=== PATIENT | female | born 1980 ===

== ENCOUNTER 2021-07-08 15:02 | Outpatient (CLI) | payer OTHER, SELFPAY ==
--- NOTE | 2021-07-08 15:54 | PM.OBTRLD ---
Visit Information Visit Information Date of evaluation: 07/08/21 Primary OB Provider: Lauren Cruz Reason for Evaluation: Yes non-stress test non-stress test reason: diabetes [facility] Medical History (Updated 07/08/21 @ 15:55 by Lauren Cruz MD) Abnormal Pap smear of cervix (~2007) Asthma Bronchopneumonia (~1995) Chicken pox (~1989) Gestational diabetes (~2017) Gestational diabetes mellitus (GDM) affecting , antepartum MRSA (methicillin resistant Staphylococcus aureus) infection (~2008) Vertigo (~2012) Surgical History (Updated 07/07/21 @ 20:31 by Luana Hall) Anesthesia H/O dilation and curettage History of cervical cerclage (~12/31/19) Previous section (~2019) [place] teeth extracted (~2005) Family History (Updated 05/24/21 @ 09:29 by Ella Woods RN) Mother Diabetes mellitus Hypertension Myocardial infarction Father No problems noted. Grandmother Memory changes Grandfather Pacemaker Myocardial infarction Grandmother Medical history unknown Grandfather No problems noted. Social History marital status: number of children: 2 household members: spouse and children lives independently: Yes caregiver/support person: No housing: house pets and animals: Yes (1 dog, 1 cat: aware/ safe. ) education level: college (Some college in [employer]: Communications. ) occupational status: unemployed current occupational exposures/hazards: No special nancy needs: No seatbelt use: always do you feel safe at home: Yes Smoking Status: Never smoker second hand exposure: No alcohol intake: former (Pre-:occasional ) substance use type: does not use during the past year weight has: increased > 10 lbs well-balanced diet: rarely or never (Since they moved. Their belongings have not arrived, does not have kitchen supplies, eating out a lot right now. ) daily servings fruits/ve-4 caffeine: Yes (Decaf. ) Type(s) of exercise: normal ROM and activity frequency: does not exercise Evaluation Evaluation Baseline heart rate: 140 Variability: Moderate (11-25) monitor accelerations: Present Monitor Decelerations: Absent Category of Tracing: Reactive Status: Category l Diagnosis, Plan/Disposition Final Diagnosis (1) Gestational diabetes mellitus (GDM) affecting , antepartum: Status: Acute Problem details: On insulin (2) 36 weeks gestation of : Status: Acute Plan/Disposition Plan: Reactive nonstress test. Patient is scheduled for repeat in 8 days. Precautions refer OB Disposition: home
== END 2021-07-08 15:55 | disposition home or self-care (01) ==
LOC: LABOR 15:42 → OB 07-09 14:37
PROVIDERS: Referring Provider Specialist; Visit Provider Specialist
DX: O24.414 Gestational diabetes mellitus in pregnancy, insulin controlled (principal); Z3A.36 36 weeks gestation of pregnancy; Z34.83 Encounter for supervision of other normal pregnancy, third trimester
CPT/HCPCS: 59025; 87653; G0378; G0379

== ENCOUNTER → 2021-07-08 15:04 | Outpatient (CLI) | payer OTHER, SELFPAY ==
[2021-07-09 18:43] LABS: Strep Grp B PCR NEG for Grp B Strep
== END ==
PROVIDERS: Referring Provider Specialist; Visit Provider Specialist
DX: Z34.83 Encounter for supervision of other normal pregnancy, third trimester (principal); Z3A.36 36 weeks gestation of pregnancy
CPT/HCPCS: 87653

== ENCOUNTER 2021-07-16 05:51 | Inpatient (IN) | payer OTHER, SELFPAY ==
[2021-07-16] VITALS (7 sets, daily range): BP systolic 105–130; BP diastolic 47–68; PULSE 72–86; RESP 12–20; TEMP 36.4–36.5; O2SAT 98–99
--- NOTE | 2021-07-16 | PATH_ITS ---
[facility] Accession Number: [id number] . 01 Material submitted: . fallopian tube - BILATERAL FALLOPIAN TUBES . 02 Diagnosis: Bilateral Fallopian Tubes, Bilateral Salpingectomy: Bilateral fallopian tubes with congestive hemorrhage and edema. Negative for dysplasia and malignancy. MRV 07/19/2021 1430 Local . 02 Electronically signed: . Peggy Kline MD, Pathologist NPI- [id number] . 01 Gross description: . The specimen is received in formalin, labeled bilateral fallopian tubes and consists of two fallopian tubes measuring 5.8 cm in length by 1.5 cm in diameter and 8.0 cm in length by 0.9 cm in diameter. The serosa is pink-purple and smooth with multiple paratubal cysts ranging from 0.1-0.3 cm. Sectioning reveals a ga mucosa and a stellate lumen measuring 0.2 cm in diameter. The shorter fallopian tube displays evidence of a hemosalpinx. Stage Electrician Helper sections of each fallopian tube are submitted, to include the end face margin (blue), central cross sections and bisected fimbriae in cassettes A1-A4. ([id number]) /MRV 07/17/2021 1144 Local . 02 Pathologist provided ICD-10: Z98.891 . 02 CPT . 142524 Performed at: 01 [facility] [address] [place] [address], [place], [place] [id number] MD Abisai Jones MD Phone: [phone] Performed at: 02 [facility] [address] [place], [place] [id number] MD Hawa Truong MD Phone: [phone]
[2021-07-16 06:44] LABS: Add Manual Diff / Slide Review NO; Basophils Absolute Auto 0 /uL (0-100); Basophils Percent Auto 0.4 % (0-2); Eosinophils Absolute Auto 0 /uL (0-450); Eosinophils Percent Auto 0.5 % (2-4); Hematocrit 35.7 % (36-46); Hemoglobin 11.8 g/dL (12.0-16.0); Lymphocytes Absolute Auto 2600 /uL (1100-4500); Lymphocytes Percent Auto 32.2 % (25-40); Mean Corpuscular HGB Conc 32.9 % (30-36); Mean Corpuscular Hemoglobin 27.3 PG (26-34); Mean Corpuscular Volume 82.8 fL (80-100); Monocytes Absolute Auto 500 /uL (0-900); Monocytes Percent Auto 6.4 % (3-14); Neutrophils Absolute Auto 4800 /uL (1500-7000); Neutrophils Percent Auto 60.5 % (50-75); Platelet Count 270 X10^3/uL (150-400); Red Blood Cell Count 4.31 X10^6/uL (4.0-5.2); Red Cell Distribution Width 15.6 % (11.6-14.8)
--- NOTE | 2021-07-16 07:24 | PM.PREOP ---
Pre-operative Note COVID-19 COVID-19 status: Result pending Result date/Date tested (Pos, Neg/Pending): 07/16/21 Interval Note History & Physical reviewed/Exam performed by Physician: Yes Changes to H&P: No
--- NOTE | 2021-07-16 07:25 | PM.OBHP.1 ---
OB HPI Date/Time Date of admission: 07/16/21 Date Patient Seen: 07/16/21 Time Patient Seen: 07:25 History of Present Condition Chief complaint: INPT : 9 Para: 3 Estimated Date of Delivery: 08/03/21 Estimated Gestational Age (weeks): 37 Narrative: Guillermina Figueroa is a 40 year old female admitted for repeat section, bilateral salpingectomies, removal of abdominal cerclage Indications Operative indications ( section): previous uterine surgery History of Present care: good care, initiated at week # (9), number of visits (10) and pounds weight gain (10) Dating criteria: LMP confirmed by 1st trimester US Ultrasounds: normal mid trimester US Obstetrical complications: gestational diabetes (On insulin) Preadmission Labs Blood type: B (+) positive -: Antibody screen: negative, GBS status: negative, HBsAG: negative, HIV: negative and RPR/VDLR: negative -: Chlamydia screen: not detected and Gonorrhea screen: not detected -: Rubella: immune HCAB: negative Prior (ies) History: 06/28/2009 female 5 lb 6 oz 06/07/2020 female 5 lb 3 oz Prior PPROM at 16 weeks Evaluation Evaluation Baseline heart rate: 130 Variability: Moderate (11-25) monitor accelerations: Present Monitor Decelerations: Absent Category of Tracing: Reactive Status: Category l PFSH Medical History (Updated 07/08/21 @ 15:55 by Lauren Cruz MD) Abnormal Pap smear of cervix (~2007) Asthma Bronchopneumonia (~1995) Chicken pox (~1989) Gestational diabetes (~2017) Gestational diabetes mellitus (GDM) affecting , antepartum MRSA (methicillin resistant Staphylococcus aureus) infection (~2008) Vertigo (~2012) Surgical History (Updated 07/07/21 @ 20:31 by Luana Hall) Anesthesia H/O dilation and curettage History of cervical cerclage (~12/31/19) Previous section (~2019) [place] teeth extracted (~2005) Family History (Updated 05/24/21 @ 09:29 by Ella Woods RN) Mother Diabetes mellitus Hypertension Myocardial infarction Father No problems noted. Grandmother Memory changes Grandfather Pacemaker Myocardial infarction Grandmother Medical history unknown Grandfather No problems noted. Social History marital status: number of children: 2 household members: spouse and children lives independently: Yes caregiver/support person: No housing: house pets and animals: Yes (1 dog, 1 cat: aware/ safe. ) education level: college (Some college in [employer]: Communications. ) occupational status: unemployed current occupational exposures/hazards: No special nancy needs: No seatbelt use: always do you feel safe at home: Yes Smoking Status: Never smoker second hand exposure: No alcohol intake: former (Pre-:occasional ) substance use type: does not use during the past year weight has: increased > 10 lbs well-balanced diet: rarely or never (Since they moved. Their belongings have not arrived, does not have kitchen supplies, eating out a lot right now. ) daily servings fruits/ve-4 caffeine: Yes (Decaf. ) Type(s) of exercise: normal ROM and activity frequency: does not exercise Meds Home Medications and Allergies Home Medications Medication Instructions Recorded Confirmed Type blood sugar diagnostic (Blood #100 ea 05/23/21 06/13/21 Rx Glucose Test) blood-glucose meter (Blood Glucose #1 ea 05/23/21 06/13/21 Rx Monitoring) lancets #200 ea 05/23/21 06/13/21 Rx prenat.vits,slava,pzo-tfug-ignxg 1 tab PO DAILY #90 tab 05/23/21 06/13/21 Rx aluminum chloride 20 % topical 1 applic TOPICAL ONCE PRN ml 05/24/21 06/13/21 History solution (Drysol) docusate sodium 100 mg tablet 50 mg PO BID tab 05/24/21 06/13/21 History (Stool Softener) insulin NPH isoph U-100 human 100 12 unit SUBCUT QPM #10 ml 05/24/21 06/13/21 Rx unit/mL subcutaneous suspension (Novolin N NPH U-100 Insulin isophane) progesterone micronized 100 mg 200 mg VAGINAL DAILY #21 ea 05/24/21 06/13/21 Rx vaginal insert hydrocodone 5 mg-acetaminophen 325 1 tab PO Q4-6H PRN #30 tab 06/27/21 06/27/21 Rx mg tablet Allergies Allergy/AdvReac Type Severity Reaction Status Date / Time Sulfa (Sulfonamide Allergy Severe Rash, Fever Verified 07/16/21 07:30 Antibiotics) Review of Systems Review of Systems Narrative: Patient denies rupture membranes, no headaches, scotomata, epigastric pain. Good movement. No regular contractions. No vaginal bleeding. Exam Vital Signs (past 8 hours): Blood pressure 130/68, pulse of 86, temperature 97.2? Narrative Exam Narrative: HEENT exam within normal limits. Lungs are clear to auscultation percussion. Heart is regular rate and rhythm no S3-S4 murmurs. Fetus is vertex. Extremities without edema and nontender. Objective Labs Result Diagrams: 07/16/21 06:35 Labs: Laboratory Results - last 24 hr 07/16/21 06:35 WBC 8.0 RBC 4.31 Hgb 11.8 L Hct 35.7 L MCV 82.8 MCH 27.3 MCHC 32.9 RDW 15.6 H Plt Count 270 Neut % (Auto) 60.5 Lymph % (Auto) 32.2 [place] % (Auto) 6.4 Eos % (Auto) 0.5 L Baso % (Auto) 0.4 Neut # (Auto) 4800 Lymph # (Auto) 2600 [place] # (Auto) 500 Eos # (Auto) 0 Baso # (Auto) 0 Assessment and Plan Assessment and Plan Assessment and Plan narrative: 37 week 3 day complicated by 2 prior sections, abdominal cerclage, gestational diabetes insulin controlled for repeat section, bilateral tubal ligation for desire for sterilization, removal of abdominal cerclage
[2021-07-16 07:32] LABS: COVID19 - ADMIT (NP swab/PCR) Negative (Negative)
[2021-07-16] MEDS: CEFAZOLIN VIAL 2 GM in SODIUM CHLORIDE 0.9% 100 ML 200 ML IV (08:05)
--- NOTE | 2021-07-16 08:09 | SUR.OPER ---
Supine on Padded OR bed, head on pillow, safety belt at thigh, arms secured on padded arm boards at <90 degrees abduction. Bump under right buttock. Legs uncrossed with pillow under knees, gel pad to heels, tape over blanket to lower legs.Gel pad placed on buitrago tubing to protect thigh.
--- NOTE | 2021-07-16 08:49 | SUR.OPER ---
Placenta and Cord Blood tubes x2 given to OB Nurse. Viable baby girl Time of 0822.
--- NOTE | 2021-07-16 09:40 | P.OP_ITS ---
Operative Date/Time/Diagnoses Date of procedure: 07/16/21 Time of procedure: 09:40 Pre-op diagnosis: 37 week gestation with abdominal cerclage and 2 prior sections and wish for sterilization Post-op diagnosis: same Procedure & Clinicians Procedure: Repeat low-transverse section with bilateral salpingectomies and removal abdominal cerclage Same procedure as scheduled: Yes Indications: 2 prior sections an abdominal cerclage at 37 and half weeks and wish for sterilization Surgeon: Lauren Cruz Software Integration Developer: Soo Sheehan Click Yes if Unassisted: No Anesthesia Type: Spinal Operative Notes Findings: Normal tubes, ovaries, uterus. Adhesions of the bladder flap to the anterior abdominal wall. Abdominal cerclage. Viable female weighing 6 lb 3 oz with Apgars of 8 and 9 Closure Type: primary Specimen(s): other (Bilateral fallopian tubes) Applied: catheter (Espinoza) Estimated Blood Loss (mL): 300 Blood products transfused: none Procedure in detail: The patient was brought to the operating room where she underwent a spinal for anesthesia. She was placed in a supine position with a left lateral tilt. A Espinoza catheter was placed. Pulsatile stockings were placed and functional throughout the case. 2 g of Ancef were given IV prior to the incision. Warming was in place. The patient was prepped and draped in usual sterile fashion. A low transverse incision was made with a scalpel and the incision was carried down to the fascial layer which was incised transversely with scalpel and scissors. The construction management assistant did her side of the incision. The midline attach ments are superiorly and inferiorly. Some bleeding was controlled Bovie. The rectus muscles were in the midline. The peritoneal was entered with the midline attachments. There was no damage to internal structures. The peritoneum was incised and superiorly and inferiorly. The incision was stretched with the surgeon and construction management assistant placing traction. Bladder blade was placed and a bladder flap was developed and the bladder held away from the lower uterine segment. An incision was made in the uterus with the scalpel and the incision was extended with stretching. The head was elevated out of the abdomen and with fundal pressure by the construction management assistant the baby was delivered. The infant was bulb suctioned for clear fluid and handed off to the warmer. Cord blood was collected. The placenta delivered spontaneously with traction. The uterus was cleaned with clean laps. The uterine incision was closed in 2 layers of 0 chromic suture the first a running locking layer the second an imbricating layer. The construction management assistant was helping to expose the incision. The bladder peritoneum was repaired with 2-0 Vicryl suture. The gutters were cleaned of any remaining fluids and ovaries and tubes were observed to be normal. The fallopian tubes were removed using the Thunderbeat. Adequate hemostasis was noted. Next the posterior uterine area of the abdominal cerclage was cut. Going anteriorly the knot was found and cleaned of scar tissue. The knot was cut and the remaining segments of the cerclage were removed. Hemostasis was obtained with Bovie. Perineum was closed with 2-0 Vicryl suture. The fascia layer was closed with 0 Vicryl suture with 2 stitches. The construction management assistant repairing half the incision with helping to retract and expose the incision for the other half. The incision was irrigated and bleeding controlled with Bovie. Adequate hemostasis noted. The incision was closed with interrupted 3-0 Vicryl sutures and then a subcuticular stitch of 4-0 Vicryl suture. Steri-Strips were placed. The uterus was massaged to remove any clots. The patient went to recovery room in good condition. Counts of instruments and sponges were correct. Dr. Sheehan was present throughout the case to assist with retraction, fundal pressure to deliver the , and suturing half the fascia as well as removing the left fallopian tube. Complications: none Post-operative Condition: stable Disposition: other ( Center) Plan for aftercare: Routine postop section
--- NOTE | 2021-07-16 10:36 | SUR.PHASEI ---
Transferred to center room 1. Received in room by LORENA Alvarez
[2021-07-16] MEDS: LACTATED RINGERS 1,000 ML 100 ML IV (11:10)
[2021-07-16] MEDS: NALOXONE 0.4 MG/ML VIAL IV (15:14)
[2021-07-16] MEDS: KETOROLAC 30 MG/ML VIAL IV ×2 (15:23→21:49)
[2021-07-17] MEDS: diphenhydrAMINE 50 MG/ML VIAL 25 MG IV (01:04)
[2021-07-17] MEDS: KETOROLAC 30 MG/ML VIAL IV (04:06)
--- NOTE | 2021-07-17 07:08 | PM.OBPN.1 ---
Subjective - OB Subjective Patient comments: no complaints and tolerating diet [place] baby status: doing well feeding status: exclusively breast feeding Date Patient Seen: 07/17/21 Time Patient Seen: 07:09 Interval history: Postoperative day 1 repeat low-transverse section, bilateral salpingectomies, removal of abdominal cerclage Exam Vital Signs (past 8 hours): Blood pressure 118/67, temperature 89, temperature 98.2? Oxygen Delivery Method Room Air Narrative Exam Narrative: Abdomen is soft, minimally distended, nontender. Uterus is firm, at U, nontender. Dressing is clean, dry, intact. Mild lochia. Extremities without edema and nontender. Patient is Rh positive, rubella immune, received Tdap in the 3rd trimester. Objective Labs Result Diagrams: 07/16/21 06:35 Labs: Laboratory Results - last 24 hr 07/16/21 07/16/21 06:35 06:35 SARS-CoV-2 (PCR) Negative Blood Type B Positive Antibody Screen Negative Assessment & Plan Assessment and Plan (1) Sterilization: Problem details: Bilateral salpingectomies Status: Acute (2) Delivery by section using transverse incision of lower segment of uterus: Status: Acute (3) Cervical cerclage suture present: Problem details: Abdominal cerclage, removed at 07/16/2021 Status: Acute Plan day: 1 plan OB: routine care Time Spent With Patient Time: Total time spent is greater than 50% in coordination of care (as documented) at patient's floor/unit and/or counseling patient: Time with patient: less than 15 minutes
[2021-07-17] MEDS: DOCUSATE 100 MG CAPSULE 200 MG PO (09:57)
[2021-07-17] MEDS: ACETAMINOPHEN 325 MG TABLET 650 MG PO ×2 (10:39→19:44)
[2021-07-17] MEDS: IBUPROFEN 600 MG TABLET PO ×2 (10:40→19:44)
[2021-07-17] MEDS: OXYCODONE IR 5 MG TABLET PO ×2 (11:33→13:09)
[2021-07-17 12:10] LABS: Add Manual Diff / Slide Review NO; Basophils Absolute Auto 0 /uL (0-100); Basophils Percent Auto 0.2 % (0-2); Eosinophils Absolute Auto 0 /uL (0-450); Eosinophils Percent Auto 0.2 % (2-4); Hematocrit 31.9 % (36-46); Hemoglobin 10.6 g/dL (12.0-16.0); Lymphocytes Absolute Auto 1900 /uL (1100-4500); Mean Corpuscular HGB Conc 33.3 % (30-36); Mean Corpuscular Hemoglobin 27.5 PG (26-34); Mean Corpuscular Volume 82.6 fL (80-100); Monocytes Absolute Auto 500 /uL (0-900); Monocytes Percent Auto 4.5 % (3-14); Neutrophils Absolute Auto 8500 /uL (1500-7000); Neutrophils Percent Auto 78.1 % (50-75); Platelet Count 267 X10^3/uL (150-400); Red Blood Cell Count 3.86 X10^6/uL (4.0-5.2); White Blood Cell Count 10.9 X10^3/uL (4.5-11.0)
[2021-07-17] MEDS: OXYCODONE IR 10 MG TABLET PO ×2 (16:49→22:14)
[2021-07-18] MEDS: ACETAMINOPHEN 325 MG TABLET 650 MG PO ×2 (02:35→08:49)
[2021-07-18] MEDS: IBUPROFEN 600 MG TABLET PO ×2 (02:35→08:48)
[2021-07-18] MEDS: OXYCODONE IR 10 MG TABLET PO ×2 (02:35→08:48)
[2021-07-18] MEDS: DOCUSATE 100 MG CAPSULE 200 MG PO (08:47)
[2021-07-18] MEDS: LANOLIN OINT 7 GM 1 APPLIC TOP (08:47)
--- NOTE | 2021-07-18 08:52 | PM.OBDS.1 ---
Discharge Providers Provider Date of admission: 07/16/21 05:51 Discharge Date: 07/18/21 Consults: 07/16/21 10:39 Consult to Supervisor Type Bar And Segment Routine Comment: Discharge provider: Lauren Cruz MD Summary Hospital Course Date Patient Seen: 07/18/21 Time Patient Seen: 08:52 Diagnoses: Prior section , wish for sterilization, removal of abdominal cerclage Hospital Course: Patient underwent a repeat low-transverse section with bilateral salpingectomies and removal of abdominal cerclage on 07/16/2021. Patient is passing gas. She is tolerating regular diet. She is urinating and ambulating well. Her pain is under control. She denies headaches, scotomata, epigastric pain. Peripartum Data Infant Delivery Method: Section Procedures: Repeat low-transverse section, bilateral salpingectomies, removal abdominal cerclage complications: none [place] 1: Gender: Female Disposition of : home Discharge Diagnosis (1) Sterilization: Status: Acute Problem Details: Bilateral salpingectomies (2) Delivery by section using transverse incision of lower segment of uterus: Status: Acute (3) Cervical cerclage suture present: Status: Acute Problem Details: Abdominal cerclage, removed at 07/16/2021 Status at Discharge Cognitive/behavioral status at discharge: oriented Functional status at discharge: independent ambulation Overall status at discharge: patient is progressing back to baseline Time Spent with Patient Time attestation: Total time spent providing and/or coordinating discharge services: Objective Labs Result Diagrams: 07/17/21 11:36 Labs: Laboratory Results - last 24 hr 07/17/21 11:36 WBC 10.9 RBC 3.86 L Hgb 10.6 L Hct 31.9 L MCV 82.6 MCH 27.5 MCHC 33.3 RDW 16.0 H Plt Count 267 Neut % (Auto) 78.1 H Lymph % (Auto) 17.0 L [place] % (Auto) 4.5 Eos % (Auto) 0.2 L Baso % (Auto) 0.2 Neut # (Auto) 8500 H Lymph # (Auto) 1900 [place] # (Auto) 500 Eos # (Auto) 0 Baso # (Auto) 0 Exam Vital Signs (past 8 hours): Blood pressure 117/79, pulse 66, temperature 97.1? Oxygen Delivery Method Room Air Narrative Exam Narrative: Abdomen is soft, nontender. Uterus is firm, at uterus, mildly tender. Dressing is clean, dry, intact. Mild lochia. Extremities without edema and nontender. Patient is B positive, rubella immune, she received Tdap in the 3rd trimester. Discharge Plan Discharge Plan Patient Disposition: Home Nursing Discharge Comment: Malini (franchise consultant) has scheduled you a follow up appointment on July 22@11:00am. Discharge orders & Medications Prescriptions: New oxycodone 10 mg Tablet 10 mg PO Q4HR PRN (Reason: Pain, Severe (7-10)) Qty: 20 RF: 0 Continued prenat.vits,slava,dgr-dhdx-acxvy Tablet 1 tab PO DAILY Qty: 90 RF: 3 docusate sodium [Stool Softener] 100 mg tablet 50 mg PO BID RF: 0 Discontinued Novolin N NPH U-100 Insulin 100 unit/mL suspension 12 unit SUBCUT QPM Qty: 10 RF: 3 No Action ibuprofen 600 mg tablet 600 mg PO Q6H PRN (Reason: Fever/Mild Pain (1-3)) Qty: 30 RF: 0 Follow up/Referrals: Lauren Cruz MD [Physician] - 07/23/21 10:45 am (To be seen by Dr Cruz on 07/23 at 1045 ( check in 15 minutes prior ) To see Dr Cruz on 08/21 at 3.30pm for post check up) Diet/Activity/Treatments Diet: Regular Activity: Nothing in vagina or lifting over 20 lb for 6 weeks Skin/Wound/Dressing Care Report to your healthcare provider any signs of infection, such as:: chills, fever, increased pain and unusual redness Dressing: Leave dressing on until 1 week postop appointment Visit Report/Discharge Packet Stand Alone Forms: Discharge: Care
[2021-07-18 09:20] VITALS: BP 115/47; PULSE 83; RESP 20; TEMP 36.5
== END 2021-07-18 11:15 | disposition home or self-care (01) | DRG 783 ==
PROVIDERS: Admitting Provider Specialist; Referring Provider Specialist; Visit Provider Specialist
PROC: 10D00Z1 Extraction of Products of Conception, Low, Open Approach (ICD-10-PCS; CPT 59514; principal; 2021-07-16 07:45)
DX: O34.43 Maternal care for other abnormalities of cervix, third trimester (principal); O60.14X0 Preterm labor third trimester with preterm delivery third trimester, not applicable or unspecified; Z30.2 Encounter for sterilization; O24.424 Gestational diabetes mellitus in childbirth, insulin controlled; Z3A.37 37 weeks gestation of pregnancy; Z37.0 Single live birth; O99.892 Other specified diseases and conditions complicating childbirth; N73.6 Female pelvic peritoneal adhesions (postinfective); Z20.822 Contact with and (suspected) exposure to COVID-19
CPT/HCPCS: 36415; 58611; 59050; 59510; 59514; 85025; 86850; 86900; 86901; 87635; C9803; J0690; J1200; J1885; J2274; J2310; J2590